=== PATIENT | female | born 1965 | race Caucasian/White ===

== ENCOUNTER 2019-03-06 09:43 | Day surgery (SDC) | payer OTHER ==
[~2019-03-06] VITALS: Ht 162.6 cm; Wt 73.9 kg
--- NOTE | 2019-03-06 10:40 | NUR ---
03/06/19 1040 Linda Landry PT THAT THERE WILL BE A DELAY D/T DR. WILLOUGHBY HAVING AN EMERGENT CASE NEXT DOOR. PT STATES AN UNNDERSTANDING. WARM BLANKET PROVIDED. CALL LIGHT WITHIN REACH.
== END 2019-03-06 12:58 | disposition home or self-care (01) ==
LOC: ORSCSDS 09:43
PROVIDERS: Internal Medicine Gastroenterology
PROC: 0DJD8ZZ Inspection of Lower Intestinal Tract, Via Natural or Artificial Opening Endoscopic (ICD-10-PCS; principal; 2019-03-06 11:00)
DX: Z12.11 Encounter for screening for malignant neoplasm of colon (principal); K64.8 Other hemorrhoids
CPT/HCPCS: J2704; J7120

== ENCOUNTER → 2022-05-20 | Outpatient (CLI) | payer OTHER | END | disposition home or self-care (01) | LOC: PLD 10:50 → LAB SHORT 10:50 | DX: L57.0 Actinic keratosis (principal) | CPT/HCPCS: 88305 ==

== ENCOUNTER → 2022-07-28 | Outpatient (CLI) | payer OTHER | LOC: LAB 09:38 → LAB SHORT 09:38 | DX: L08.0 Pyoderma (principal) | CPT/HCPCS: 87070; 87205 ==